=== PATIENT | female | born 1985 | race Caucasian/White ===

== ENCOUNTER 2016-07-01 | Emergency (ER) | payer OTHER ==
[2016-07-01] MEDS ORDERED: NO HOME MEDICATION XX (08:50)
== END 2016-07-01 11:38 ==
DX: K21.9 Gastro-esophageal reflux disease without esophagitis (principal); R07.89 Other chest pain; R20.0 Anesthesia of skin; F17.200 Nicotine dependence, unspecified, uncomplicated; Z90.710 Acquired absence of both cervix and uterus